=== PATIENT | male | born 1960 | race Caucasian/White ===

== ENCOUNTER 2016-05-01 14:15 | Emergency (ER) | payer OTHER ==
[~2016-05-01] VITALS: Ht 170.2 cm; Wt 60.0 kg
[2016-05-01 14:17] VITALS: BP 114/70; PULSE 104; RESP 16; TEMP 98; O2SAT 96
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
[2016-05-01] MEDS ORDERED: LISI-519 PO (14:48)
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
[2016-05-01] MEDS ORDERED: IBUP800T23 PO (15:11)
== END 2016-05-01 16:54 | disposition home or self-care (01) ==
LOC: NEPB 14:15
DX: S89.92XA Unspecified injury of left lower leg, initial encounter (principal); S90.31XA Contusion of right foot, initial encounter; S90.511A Abrasion, right ankle, initial encounter; S80.212A Abrasion, left knee, initial encounter; I10 Essential (primary) hypertension; V28.0XXA Motorcycle driver injured in noncollision transport accident in nontraffic accident, initial encounter
CPT/HCPCS: 73564; 99283; E0113